=== PATIENT | male | born 1960 | race Caucasian/White ===

== ENCOUNTER 2016-02-19 06:01 | Observation (INO) | payer OTHER ==
[~2016-02-19 06:01] MED LIST: ceFAZolin 3 GM in D5W 100 ML IV ONE
[2016-02-19] MEDS ORDERED: LIDOCAINE 1% 5 ML SDV ONE (06:15)
--- NOTE | 2016-02-19 06:34 | CPEKG ---
Heart Rate: 89 RR Interval: 674 P-R Interval: 168 QRSD Interval: 120 QT Interval: 376 QTC Interval: 458 P [place]: 58 QRS [place]: 10 T Wave [place]: -42 EKG Severity - ABNORMAL ECG - EKG Impression: SINUS RHYTHM EKG Impression: INCOMPLETE RIGHT BUNDLE BRANCH BLOCK Electronically Signed By: Jeff Bauer 19-Feb-2016 09:10:03
[2016-02-19] MEDS ORDERED: THROMBIN (RECOMBINANT) 5,000 UNIT VIAL TP ONE (06:36)
[2016-02-19] MEDS ORDERED: BACITRACIN 50,000 UNITS/10 ML SYR IRR ONE (06:37)
[2016-02-19] MEDS ORDERED: BUPIVACAINE/EPI 0.25% 30 ML SDV ONE ×2 (06:37→07:13)
[2016-02-19] MEDS ORDERED: DEPO METHYLPREDNISOLONE 40 MG/ML SDV ONE (06:37)
[2016-02-19] MEDS ORDERED: LR 1,000 ML IV ONE (07:03)
[2016-02-19] MEDS ORDERED: MAGNESIUM HYDROXIDE 30 ML UDCUP PO PRN (07:07)
[2016-02-19] MEDS ORDERED: POLYETHYLENE GLYCOL 3350 17 GM PKT PO PRN (07:07)
[2016-02-19] MEDS ORDERED: ONDANSETRON DISINTEGRATING 4 MG TAB PO PRN (07:07)
[2016-02-19] MEDS ORDERED: DIAZEPAM 5 MG TAB PO PRN (07:07)
[2016-02-19] MEDS ORDERED: ONDANSETRON 4 MG/2 ML VIAL IVP PRN ×2 (07:07)
[2016-02-19] MEDS ORDERED: DIAZEPAM 10 MG/2 ML SYR IVP PRN (07:07)
[2016-02-19] MEDS ORDERED: morphINE PCA 30 MG/30 ML PCA IV PRN (07:07)
[2016-02-19] MEDS ORDERED: BISACODYL 10 MG SUPP PR PRN (07:07)
[2016-02-19] MEDS ORDERED: NALOXONE HCL 0.4 MG/ML INJ IVP PRN (07:07)
[2016-02-19] MEDS ORDERED: ACETAMINOPHEN 325 MG TAB PO PRN ×2 (07:07)
[2016-02-19] MEDS ORDERED: diphenhydrAMINE 25 MG CAP PO PRN ×2 (07:07)
[2016-02-19] MEDS ORDERED: LACTULOSE 20 GM/30 ML UDCUP PO PRN (07:07)
[2016-02-19] MEDS ORDERED: TEMAZEPAM 15 MG CAP PO PRN (07:07)
[2016-02-19] MEDS ORDERED: oxyCODONE IR 5 MG TAB PO PRN (07:07)
[2016-02-19 07:08] LABS: % IMMATURE GRANULYOCYTES 0.2 % (0.0-1.1); ABSOLUTE IMMATURE GRANULOCYTES 0.01 10^3/uL (0.00-0.10); ADD DIFF? NO; ADD MORPH? NO; ADD SCAN? NO; ATYPICAL LYMPHOCYTE FLAG 10 (0-99); FRAGMENT RBC FLAG 0 (0-99); HEMATOCRIT 51.3 % (40.0-51.0); HEMOGLOBIN 18.1 g/dL (13.7-17.5); LEFT SHIFT FLG 0 (0-99); LIPEMIA HEMOLYSIS FLAG 90 (0-99); MEAN CELL HEMOGLOBIN 30.6 pg (27.9-34.1); MEAN CELL HEMOGLOBIN CONCENTR. 35.3 g/dL (32.4-36.7); MEAN CELL VOLUME 86.8 fL (81.5-99.8); MEAN PLATELET VOLUME 8.9 fL (8.7-11.7); PLATELET CLUMPS FLAG 0 (0-99); PLATELET COUNT 220 10^3/uL (150-400); RED BLOOD CELL COUNT 5.91 10^6/uL (4.40-6.38); RED CELL DISTRIBUTION WIDTH 12.9 % (11.5-15.2)
[2016-02-19] MEDS ORDERED: PROPOFOL/EMULSION 500 MG/50 ML BOTTLE IV ONE ×3 (07:15→08:41)
[2016-02-19] MEDS ORDERED: fentaNYL 100 MCG/2 ML INJ ONE ×4 (07:15→10:35)
[2016-02-19] MEDS ORDERED: NS W/ 20 KCl/L 1,000 ML IV SCH (07:15)
[2016-02-19 07:23] LABS: ANION GAP 11 mEq/L (8-16); CARBON DIOXIDE 26 mEq/l (22-31); CHLORIDE 106 mEq/L (97-110); CREATININE 0.8 mg/dL (0.7-1.3); GLOMERULAR FILTRATION RATE > 60; GLUCOSE 128 mg/dL (70-100); POTASSIUM 3.5 mEq/L (3.5-5.2); SODIUM 143 mEq/L (134-144)
[2016-02-19] MEDS ORDERED: MIDAZOLAM 2 MG/2 ML VIAL ONE (07:26)
[2016-02-19] MEDS ORDERED: REMIFENTANIL HCL 1 MG VIAL ONE (08:41)
[2016-02-19] MEDS ORDERED: FAMOTIDINE 20 MG/NACL 50 ML IV SCH (09:00)
[2016-02-19] MEDS ORDERED: ONDANSETRON 4 MG/2 ML VIAL ONE ×3 (09:42→11:42)
--- NOTE | 2016-02-19 10:39 | DX ---
Fluoroscopy for lumbar spine surgical procedure 0818 hours. History: Back pain. L3-L4 laminectomy. Findings: Fluoroscopy time: 0.1 minutes, Estimated dose: 6.38 mGy A single digital image submitted demonstrates probe directed toward the L3-L4 disk space level. Impression: Fluoroscopy provided for lumbar spine surgical procedure.
[2016-02-19] MEDS ORDERED: DIAZEPAM 5 MG TAB ONE (10:48)
[2016-02-19] MEDS ORDERED: ACETAMINOPHEN 325 MG TAB ONE (10:48)
[2016-02-19] MEDS ORDERED: TADALAFIL 10 MG PO PRN (10:50)
--- NOTE | 2016-02-19 10:54 | SOAPPROG ---
SOAP Progress Note Assessment/Plan: Post Op Visit: S: Awake and alert. NAD. Pt with expected lower back pain O: AFVSS, PERRLA/EOMI no droop CN 2-12 grossly intact +lt touch 5/5 BUE/BLE = CDI A/P: 55 yo male that is s/p left L3/4 ARCELIA -orders in -call with any questions or concerns -take medications as directed -pt seen by Dr Hilton as well 02/19/16 10:51 Objective: Laboratory Results 02/19/16 06:55 02/19/16 06:55 ICD10 Worksheet Patient Problems: Problems Problem Status Diagnosed H/O microdiscectomy Acute Herniated disc Acute Lumbar radicular pain Acute Lumbar spinal stenosis Acute - ICD10 Problem Qualifiers (1) Lumbar spinal stenosis (2) Lumbar radicular pain (3) Herniated disc (4) H/O microdiscectomy
[2016-02-19] MEDS ORDERED: QUINAPRIL PO SCH (11:00)
[2016-02-19] MEDS ORDERED: HYDROCHLOROTHIAZIDE PO SCH (11:00)
[2016-02-19] MEDS ORDERED: [UNRECOGNIZED DRUG - OTHER] PO SCH (11:00)
[2016-02-19] MEDS ORDERED: HYDROmorphONE/DILAUDID 1 MG/ML SYR ONE (11:01)
[2016-02-19] MEDS ORDERED: oxyCODONE IR 5 MG TAB ONE (11:01)
--- NOTE | 2016-02-19 11:18 | GOP ---
[f rep st] OPERATIVE REPORT DATE OF OPERATION: 02/19/2016 SURGEON: Milton Hilton MD ASSOCIATE DIRECTOR REGULATORY AFFAIRS: TEE Lux PREOPERATIVE DIAGNOSIS: 1. Herniated nucleus pulposus, left L3-4, severe left lower extremity radiculopathy. 2. Morbid obesity. POSTOPERATIVE DIAGNOSIS: 1. Herniated nucleus pulposus, left L3-4, severe left lower extremity radiculopathy. 2. Morbid obesity. PROCEDURE PERFORMED: Left L3-4 laminotomy, microdiskectomy, microscope ([id number], [id number]). FINDINGS: ESTIMATED BLOOD LOSS: 150 cc. INDICATIONS: The patient is a 55-year-old with terrible left lower extremity pain who had an MRI of the lumbar spine demonstrating a huge disk herniation on the left at L3-4 compressing the thecal sac and the left L4 nerve root. I suggested surgery for this. The risks of recurrent disk herniation, n erve injury, spinal fluid leak were discussed. He knew there was a chance surgery would fail to elim inate his discomfort, and he accepted these risks, and he wanted to proceed. DESCRIPTION OF PROCEDURE: Patient was taken to the operating room, placed in supine position. Gener al anesthesia was begun. He was an extremely large individual, and it was difficult to get him to fi t on the frame, but he was flipped prone onto the Bharathi frame. Care was taken to pad all points of contact. His position was difficult and took about 15 additional minutes because of the patient's si ze. He was then sterilely prepped and draped in the usual fashion. Localizing x-rays were taken. We made a midline incision above the L3-4 space. A 2.5 cm incision was used. The incision had to be larger as well because of the patient's body habitus. The subcutaneous tissue was dissected using B ovie cautery down through the fascia, and a subperiosteal dissection was made down to the left L3-4 l basia. We got a Bovie senior net engineer to reach down to the spine. A self-retaining retractor was placed. We had to use a 100 mm retractor to approach the spine, and it was buried to reach the L3-4 interspac e. This took additional time, and exposure took additional time, as well as the dissection took add itional time because of the patient's body habitus, and this increased the difficulty of the case avril roximately 30% to 40% because of the patient's body habitus. We then shot a localizing x-ray, drille d a left L3-4 laminotomy and under the microscope opened the ligamentum flavum and decompressed the l ateral recess of the spinal canal. This too was somewhat more difficult. We had to open the bariatr ic instruments to reach the spinal canal. We swept the thecal sac medially, and there was a huge dis k herniation located directly underneath the thecal sac. There was a large amount of epidural venous bleeding, and this took additional time as well to cauterize. This was likely related to his abdomi nal pressure from the patient's body habitus. We were able to control the bleeding, but we continue to struggle with it throughout the surgery. We did remove a very large intraspinal disk fragment. W e never had incised the anulus of the L3-4 disk. The posterior wall of the disk itself was disrupted . We simply pulled out a large free fragment of disk and continued decompressing. We removed the lo ose pieces of disk within the disk space and irrigated the disk space with antibiotic saline solution and then placed some Depo-Medrol over the left L4 root. We then closed the incision in multiple layers using Vicryl sutures. A running PDS was placed in the skin itself. The patient was reversed from anesthesia, extubated, and transferred to the recovery r o in stable condition. COMPLICATIONS: None. /[id number]/MODL
[2016-02-19] MEDS: SENNOSIDES/DOCUSATE SODIUM TAB PO SCH ×2 (13:01→20:02)
[2016-02-19] MEDS: FAMOTIDINE 20 MG TAB PO SCH (20:02)
[2016-02-19] MEDS: HYDROCODONE/APAP 10/325 TAB PO PRN (22:15)
[2016-02-20] MEDS: HYDROCODONE/APAP 10/325 TAB PO PRN ×2 (05:28→11:59)
[2016-02-20 07:24] VITALS: RESP 18
[2016-02-20] MEDS: FAMOTIDINE 20 MG TAB PO SCH (07:37)
[2016-02-20] MEDS: METHOCARBAMOL 750 MG TAB PO PRN ×2 (07:38→13:39)
[2016-02-20] MEDS: SENNOSIDES/DOCUSATE SODIUM TAB PO SCH (07:38)
--- NOTE | 2016-02-20 08:02 | NEUSURGPN ---
Assessment/Plan: A/P: 55 yo male that is s/p left L3/4 ARCELIA -Optimize pain management, patient doing better on [place] than Oxycodone -PT/OT this am, if does well may be discharged home this afternoon -Call with any changes in neuro or motor exam -Patient seen and discussed with Dr. Hilton Subjective: Patient doing better this morning, leg pain improved. Able to get up and walk around room this am,no BM. Objective: NAD, VSS BUE/BLE 5/5= Sensation intact to lt touch incision c/d/i-dressed - Physician Discussed Patient with : Yobani Patient Seen by : Yobani Neurosurgery Physical Exam - Vitals, I&O, Labs I and O 02/19/16 02/20/16 02/21/16 05:59 05:59 05:59 Intake Total 2650 Output Total 600 Balance 2049 Weight 156.489 kg Intake: Oral (ml) 1500 IV Intake (ml) 1100 IV Infused (ml) 50 ceFAZolin 1 GM/DEXTROSE 50 50 ml @ 200 mls/hr IV Q8H [facility] Rx#:[id number] Output: Urine (ml) 500 Urinal 500 Estimated Blood Loss (ml) 100 Other: Number of Voids Toilet 1 Bladder Scan Volume (ml) Urinal 520 Vital Signs Temp Pulse Resp BP Pulse Ox 36.9 C 71 18 142/91 H 94 02/20/16 07:23 02/20/16 07:23 02/20/16 07:23 02/20/16 07:38 02/20/16 07:23 Laboratory Results 02/19/16 06:55 02/19/16 06:55 ICD10 Worksheet Patient Problems: Problems Problem Status Diagnosed H/O microdiscectomy Acute Herniated disc Acute Lumbar radicular pain Acute Lumbar spinal stenosis Acute
[2016-02-20] MEDS ORDERED: LISINOPRIL 20 MG TAB PO SCH (09:00)
[2016-02-20] MEDS ORDERED: ATORVASTATIN CALCIUM 10 MG TAB PO SCH (09:00)
[2016-02-20] MEDS ORDERED: HYDROCHLOROTHIAZIDE 25 MG TAB PO SCH (09:00)
[2016-02-20 11:35] VITALS: BP 115/78; PULSE 69; TEMP 98.5; O2SAT 92
[2016-02-22] MEDS ORDERED: ENOXAPARIN 40 MG/0.4 ML SYR SC SCH (09:00)
== END 2016-02-20 14:02 | disposition home or self-care (01) ==
LOC: F3N 06:01
PROVIDERS: ADMIT Neurological Surgery; ATTEND Neurological Surgery
PROC: 0SB20ZZ Excision of Lumbar Vertebral Disc, Open Approach (ICD-10-PCS; principal; 2016-02-19 07:30)
PROC: 00NY0ZZ Release Lumbar Spinal Cord, Open Approach (ICD-10-PCS; principal; 2016-02-19 07:30)
DX: M51.16 Intervertebral disc disorders with radiculopathy, lumbar region (principal); E66.01 Morbid (severe) obesity due to excess calories; I10 Essential (primary) hypertension; E78.5 Hyperlipidemia, unspecified; Z68.41 Body mass index [BMI] 40.0-44.9, adult
CPT/HCPCS: 63030; 76001; 93005; 97161; 97165; G0378; J0690; J1020; J1170; J2250; J2405; J2704; J3010